=== PATIENT | female | born 1955 | race Caucasian/White ===

== ENCOUNTER 2016-10-14 14:28 | Emergency (ER) | payer BC ==
[~2016-10-14] VITALS: Ht 157.5 cm; Wt 63.0 kg
[2016-10-14 14:46] VITALS: BP 152/95
--- NOTE | 2016-10-14 15:03 | NUR ---
PT BRIB SELF FOR DYSURIA STATES "PAIN WHILE URINATING X 2 DAYS, WITHOUT HEMATURIA" SUPRA PUBIC PAIN /, NON RADIATING. ABDOMEN SOFT NON TENDER, PULSES INTACT.
[2016-10-14 15:26] LABS: APPEARANCE,URINE CLOUDY (CLEAR); BILIRUBIN,URINE NEGATIVE (NEGATIVE); BLOOD, URINE 3+ Ery/uL (NEGATIVE); COLOR,URINE DARK YELLO (YELLOW); KETONES,URINE NEGATIVE (NEGATIVE); LEUKOCYTE ESTERASE ,URINE 2+ (NEGATIVE); NITRITE, URINE POSITIVE (NEGATIVE); PH,URINE 5.5 (5.0-8.0); PROTEIN,URINE 1+ mg/dl (NEGATIVE); UGLUCOSE NEGATIVE (NEGATIVE); UROBILINOGEN,URINE 0.2 EU/dL (0.2)
[2016-10-14 15:35] LABS: RBC,URINE TOO NUMEROUS TO COUN /HPF (0-2)
[2016-10-14 15:36] LABS: BACTERIA,URINE Rare /HPF (None Seen); SQUAMOUS EPITHELIAL CELL,UR Few /HPF (None Seen); WBC,URINE 21-50 /HPF (0-3)
== END 2016-10-14 17:00 | disposition home or self-care (01) ==
LOC: ER 14:29
DX: N39.0 Urinary tract infection, site not specified (principal); E78.00 Pure hypercholesterolemia, unspecified; I10 Essential (primary) hypertension; I48.91 Unspecified atrial fibrillation; Z88.2 Allergy status to sulfonamides; Z90.89 Acquired absence of other organs; Z98.890 Other specified postprocedural states
CPT/HCPCS: 81001; 87086; 99284; A4606; Z7610; 81000-TC; 87186-TC

== ENCOUNTER 2016-10-18 13:03 | Emergency (ER) | payer BC ==
[~2016-10-18] VITALS: Ht 157.5 cm; Wt 63.0 kg
[2016-10-18] MEDS ORDERED: LIDOCAINE /MPF 1% VIAL 5 ML VIAL ONE (13:44)
[2016-10-18] MEDS ORDERED: CEFTRIAXONE 1 G VIAL ONE (13:44)
[2016-10-18] MEDS ORDERED: CEFTRIAXONE 1 G VIAL IM ONE (14:00)
[2016-10-18 14:03] VITALS: BP 120/75
--- NOTE | 2016-10-18 14:03 | NUR ---
DPatient discharged to home in stable condition. Written and verbal after care instructions given. Patient verbalizes understanding of instruction.
== END 2016-10-18 14:04 | disposition home or self-care (01) ==
LOC: ER 13:05
DX: N39.0 Urinary tract infection, site not specified (principal); R42 Dizziness and giddiness; T36.8X5A Adverse effect of other systemic antibiotics, initial encounter; Y92.89 Other specified places as the place of occurrence of the external cause; E78.00 Pure hypercholesterolemia, unspecified; I10 Essential (primary) hypertension; I48.91 Unspecified atrial fibrillation; Z88.2 Allergy status to sulfonamides; Z98.890 Other specified postprocedural states
CPT/HCPCS: 96372; 99283; A4606; J0696; J3490; Z7610